=== PATIENT | female | born 1995 | race Caucasian/White ===

== ENCOUNTER 2021-01-11 16:23 | Emergency (ER) | payer BC, OTHER ==
--- NOTE | 2021-01-11 17:16 | CR ---
EXAMINATION: Elbow Min 3V Rt SEX: Female AGE: 25 years CLINICAL HISTORY: 25-year-old female injured in fall (pain to right Elbow). INTERPRETATION: Abnormal. 1. Acute, mildly impacted, FRACTURE right radial head. 2. Homogeneous normal bone mineral density for age and gender. 3. No sign of other right elbow fracture or dislocation. 4. No foreign bodies (splint).
[2021-01-11] MEDS ORDERED: Acetaminophen/HYDROcodone 325-10 MG Tab PO ONE (17:31)
--- NOTE | 2021-01-11 17:46 | EDM.PDOC ---
ED HPI GENERAL MEDICAL PROBLEM - General Chief Complaint: Upper Extremity Injury/Pain Stated Complaint: RIGHT ELBOW INJURY Time Seen by Provider: 01/11/21 17:20 Source of Information: Reports: Patient History Limitations: Reports: No Limitations - History of Present Illness INITIAL COMMENTS - FREE TEXT/NARRATIVE: This 25 yo female patient reports to the ED due to a right elbow injury. The patient was at drill with the [employer] when she fell off scaffolding onto her right elbow. The patient's right arm was placed in a splint the by the Guard Medic with good immobilization. The patient reports she has had some tingling in her fingers since the fall with no change. The patient's pulse remained strong with some mobility of her hand and finger. The patient is reluctant to move her elbow due to increased pain with movement. Onset: Today Duration: Minutes: Location: Reports: Upper Extremity, Right Quality: Reports: Ache, Sharp Severity: Moderate Improves with: Reports: Immobilization Worsens with: Reports: Movement Context: Reports: Trauma Associated Symptoms: Reports: No Other Symptoms Right Elbow Pain Score (Numeric/FACES): 10 - Related Data Allergies Allergy/AdvReac Type Severity Reaction Status Date / Time No Known Allergies Allergy Verified 01/11/21 16:37 Home Meds: Home Meds . [No Known Home Meds] 01/11/21 [History] Past Medical History - Past Health History Medical/Surgical History: Denies Medical/Surgical History Social & Family History - Tobacco Use Tobacco Use Status *Q: Never Tobacco User Second Hand Smoke Exposure: No - Caffeine Use Caffeine Use: Reports: Coffee - Recreational Drug Use Recreational Drug Use: No Review of Systems - Review of Systems Review Of Systems: Comprehensive ROS is negative, except as noted in HPI. ED EXAM, GENERAL - Physical Exam Exam: See Below Exam Limited By: No Limitations General Appearance: Alert, WD/WN, Moderate Distress Eye Exam: Bilateral Eye: EOMI, Normal Inspection, PERRL Ears: Normal External Exam, Normal Canal, Hearing Grossly Normal, Normal TMs Nose: Normal Inspection, Normal Mucosa, No Blood Throat/Mouth: Normal Inspection, Normal Lips, Normal Teeth, Normal Gums, Normal Oropharynx, Normal Voice, No Airway Compromise Head: Atraumatic, Normocephalic Neck: Normal Inspection, Supple, Non-Tender, Full Range of Motion Respiratory/Chest: No Respiratory Distress, Lungs Clear, Normal Breath Sounds, No Accessory Muscle Use, Chest Non-Tender Cardiovascular: Normal Peripheral Pulses, Regular Rate, Rhythm, No Edema, No Gallop, No JVD, No Murmur, No Rub (Female) Exam: Deferred Rectal (Female) Exam: Deferred Back Exam: Normal Inspection, Full Range of Motion, NT Extremities: Arm Pain (right proximal forearm tenderness) Neurological: Alert, Oriented, CN II-XII Intact, Normal Gait Psychiatric: Normal Affect, Normal Mood Skin Exam: Warm, Dry, Intact, Normal Color, No Rash Lymphatic: No Adenopathy ED TRAUMA EXTREMITY PROCEDURES - Splinting Right Upper Extremity Splint Site: Right forearm Pre-Procedure NV Status: Normal Post-Procedure NV Status: Normal Splint Material: Fiberglass Splint Design: Volar Applied & Form Fitted By: Provider Provider Post-Splint Application NV Check: NV Status Normal Complications: No Course - Vital Signs Last Recorded V/S: Last Vital Signs Temp 95.1 F L 01/11/21 16:38 Pulse 74 01/11/21 16:38 Resp 20 01/11/21 16:38 BP 112/82 01/11/21 16:38 Pulse Ox 100 01/11/21 16:38 - Orders/Labs/Meds Meds: Medications Discontinued Medications Generic Name Dose Route Start Last Admin Trade Name Freq PRN Reason Stop Dose Admin Hydrocodone Bitart/Acetaminophen 1 tab 01/11/21 17:31 01/11/21 17:36 Acetaminophen/Hydrocodone 325-10 Mg Tab PO 01/11/21 17:32 1 tab ONETIME ONE Administration Departure - Departure Time of Disposition: 18:00 Disposition: Home, Self-Care 01 Condition: Fair Clinical Impression: Fracture of radial head, right, closed Qualifiers: Encounter type: initial encounter Fracture alignment: nondisplaced Qualified Co de(s): S52.124A - Nondisplaced fracture of head of right radius, initial encounter for closed fracture - Discharge Information *PRESCRIPTION DRUG MONITORING PROGRAM REVIEWED*: Not Applicable *COPY OF PRESCRIPTION DRUG MONITORING REPORT IN PATIENT MONICA: Not Applicable Care Plan Goals: The patient was advised of the examination and x-ray results during the visit. Dr. Mancuso (Orthopedic Surgeon with [facility] in [place]) was consulted during the visit. The patient should visit Dr. Mancuso on Saturday in the [facility] . The patient was encouraged to call the [facility] to arrange a time for Saturday (01/16/21). The patient was discharged with a script for John () #4 to take 1 by mouth every 6 hours as needed for pain. If the patient has any additional symptoms or concerns, the patient should either return to the emergency department or visit her primary care facility. Sepsis Event Note (ED) - Evaluation Sepsis Screening Result: No Definite Risk - Focused Exam Vital Signs: Vital Signs Temp Pulse Resp BP Pulse Ox 01/11/21 16:38 95.1 F L 74 20 112/82 100
== END 2021-01-11 18:13 | disposition home or self-care (01) ==
LOC: DL.ED 16:23
DX: S52.124A Nondisplaced fracture of head of right radius, initial encounter for closed fracture (principal); W18.39XA Other fall on same level, initial encounter
CPT/HCPCS: 29105; 73080-RT; 99283-25; 99284; A9270-GY